=== PATIENT | male | born 1990 | race Caucasian/White ===

== ENCOUNTER 2019-03-05 04:00 | Emergency (ER) | payer OTHER ==
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
[2019-03-05 05:14] LABS: COCAINE, UR NEGATIVE ng/ml (CUTOFF=300); METHADONE, UR NEGATIVE ng/ml (CUTOFF=300); OPIATES, URI NEGATIVE ng/ml (CUTOFF=300); PHENCYCLIDINE,URINE NEGATIVE ng/ml (CUTOFF=25); URINE AMPHETAMINES NEGATIVE ng/ml (CUTOFF=500); URINE BARBITURATES NEGATIVE ng/ml (CUTOFF=200); URINE BENZODIAZEPINES NEGATIVE ng/ml (CUTOFF=200)
[2019-03-05 05:28] VITALS: TEMP 98.2; BMI 35.2
[2019-03-05 05:50] VITALS: BP 169/101; PULSE 84
== END 2019-03-05 05:52 | disposition home or self-care (01) ==
LOC: JER 04:00
DX: Z02.83 Encounter for blood-alcohol and blood-drug test (principal); V40.5XXA Car driver injured in collision with pedestrian or animal in traffic accident, initial encounter; Y92.414 Local residential or business street as the place of occurrence of the external cause; Y99.0 Civilian activity done for income or pay; Y93.89 Activity, other specified
CPT/HCPCS: 36415; 80307; 99282-25